=== PATIENT | female | born 1960 | race Caucasian/White ===

== ENCOUNTER → 2019-04-14 | Outpatient (CLI) | payer OTHER ==
[~2019-04-14] MED LIST: ? HTN MED; ALBU90OI; ASCO250CH; ATOR10 PO; CLARITIN10 MG PO; COLCHICINE0.6 MG PO; COLE625; CYAN500; Diclofenac Pota50 MG PO; HYDACE10B PO; HYDCHL25 PO; HYDR1TAB94 PO; INSULANPEN SQ; INVOKANA300 MG PO; LINZESS145 MCG PO; LISI5 PO; METF500 PO; NAPR500 PO; OMEP40CA12 PO; PRECOSE; Phentermine HCl30 MG; QVAR7.3 G1 IH; STOMUL; [UNRECOGNIZED DRUG - REMARK]; [UNRECOGNIZED DRUG - REMARK]
[2019-04-16 14:07] LABS: HPV 16 Negative (Negative); HPV 18 Negative (Negative); HPV OTHER HR TYPES Positive (Negative)
== END | disposition home or self-care (01) ==
LOC: LAB 11:45 → LAB SHORT 11:45
PROVIDERS: Nurse Practitioner Women's Health
DX: Z12.4 Encounter for screening for malignant neoplasm of cervix (principal); Z91.89 Other specified personal risk factors, not elsewhere classified
CPT/HCPCS: 87624; 87625; G0123

== ENCOUNTER → 2020-09-10 | Outpatient (CLI) | payer OTHER | END | disposition home or self-care (01) | LOC: LAB SHORT 08:30 | DX: R82.998 Other abnormal findings in urine (principal) | CPT/HCPCS: 87086 ==

== ENCOUNTER → 2020-09-13 | Outpatient (CLI) | payer OTHER ==
[2020-09-13 12:27] LABS: Protein, Urine Quantitative 14.9 mg/dL (0.0-11.9)
== END | disposition home or self-care (01) ==
LOC: LAB SHORT 08:00 → LAB 08:00 → LAB FUT 09-10 08:30
PROVIDERS: Family Medicine
DX: E11.65 Type 2 diabetes mellitus with hyperglycemia (principal)
CPT/HCPCS: 81050; 84156

== ENCOUNTER 2023-11-15 21:31 | Emergency (ER) | payer OTHER ==
[~2023-11-15] VITALS: Ht 165.1 cm; Wt 93.0 kg
[~2023-11-15 21:31] MED LIST changes: +Zofran4 MG PO
[2023-11-15 22:31] LABS: BASOPHILS ABSOLUTE AUTO 0.04 K/mm3 (0.00-0.23); BASOPHILS PERCENT AUTO 0 % (0-2); EOSINOPHILS ABSOLUTE AUTO 0.15 K/mm3 (0.00-0.68); EOSINOPHILS PERCENT AUTO 1 % (0-6); Hematocrit 41.6 % (33.0-51.0); Hemoglobin 12.9 g/dL (11.5-16.0); IMMATURE GRAN ABSOLUTE AUTO 0.03 K/mm3 (0.00-0.10); IMMATURE GRAN PERCENT AUTO 0 % (0-1); LYMPHOCYTES ABSOLUTE AUTO 3.85 K/mm3 (0.84-5.20); LYMPHOCYTES PERCENT AUTO 31 % (21-46); MONOCYTES ABSOLUTE AUTO 0.87 K/mm3 (0.16-1.47); MONOCYTES PERCENT AUTO 7 % (4-13); Mean Corpuscular HGB 25.1 pg (26.0-34.0); Mean Corpuscular Volume 81 fL (80-100); Mean Platelet Volume 10.5 fL (9.1-12.4); NEUTROPHILS ABSOLUTE AUTO 7.57 K/mm3 (1.96-9.15); NEUTROPHILS PERCENT AUTO 61 % (41-73); Platelet Count 366 K/mm3 (150-400); RDW Coefficient Variation 14.7 % (11.7-14.2); RDW Standard Deviation 43.8 fL (35.1-46.3); Red Blood Cell Count 5.14 M/mm3 (3.80-5.20); White Blood Cell Count 12.51 K/mm3 (4.00-11.30)
[2023-11-15] MEDS ORDERED: Adenosine 3 MG/ML 2 ML Vial IV ONE (22:40)
[2023-11-15] MEDS ORDERED: Adenosine 3 MG/ML 4ML Vial IV ONE ×2 (22:40)
[2023-11-15] MEDS ORDERED: Adenosine 3 MG/ML 2 ML Vial ONE (22:42)
[2023-11-15 22:50] LABS: Influenza A, PCR NEGATIVE (NEGATIVE); Influenza B, PCR NEGATIVE (NEGATIVE); Resp Syncytial Virus, PCR NEGATIVE (NEGATIVE); SARS-Cov-2 (COVID-19) PCR, MMC NEGATIVE (NEGATIVE)
[2023-11-15 22:52] LABS: Albumin, Blood 3.5 g/dL (3.4-5.0); Albumin/Globulin Ratio 0.8 (0.8-1.8); Bilirubin, Total 0.4 mg/dL (0.1-1.0); Bun/Creatinine Ratio 32.7 (12.0-20.0); Calcium, Blood 9.7 mg/dL (8.5-10.1); Creatinine, Blood 1.47 mg/dL (0.40-1.00); Globulin, Blood 4.4 g/dL (2.2-4.0); Magnesium, Blood 1.2 mg/dL (1.6-2.4); Potassium, Blood 4.3 mmol/L (3.5-5.5); Total Protein, Blood 7.9 g/dL (6.4-8.2)
[2023-11-15] MEDS ORDERED: Magnesium Sulf 2 GM/Water 50ML 50 ML IV ONE (23:10)
[2023-11-15] MEDS ORDERED: NS 1,000 ML IV SCH (23:10)
[2023-11-15 23:14] LABS: International Normalized Ratio 0.92; Prothrombin Time Results 9.9 Sec (9.7-11.5)
[2023-11-15] MEDS ORDERED: MOUNJARO12.5 MG/0. SQ (23:30)
[2023-11-15] MEDS ORDERED: SYNJARDY XR 121 EAC1 PO (23:30)
[2023-11-15] MEDS ORDERED: DEXCOM G7 SENS1 EACH MC (23:30)
[2023-11-16 00:45] VITALS: BP 139/71
== END 2023-11-16 00:51 | disposition home or self-care (01) ==
LOC: ER 21:31
PROVIDERS: Emergency Medicine; Physician Assistant
DX: I47.10 Supraventricular tachycardia, unspecified (principal); E83.42 Hypomagnesemia; N17.9 Acute kidney failure, unspecified; E86.0 Dehydration; E11.9 Type 2 diabetes mellitus without complications; I10 Essential (primary) hypertension; E66.01 Morbid (severe) obesity due to excess calories; J45.909 Unspecified asthma, uncomplicated; Z79.84 Long term (current) use of oral hypoglycemic drugs; Z79.4 Long term (current) use of insulin; Z79.899 Other long term (current) drug therapy; Z88.0 Allergy status to penicillin; Z88.2 Allergy status to sulfonamides; Z91.018 Allergy to other foods; Z88.8 Allergy status to other drugs, medicaments and biological substances
CPT/HCPCS: 0241U; 71045; 80053; 83735; 83880; 84484; 85025; 85610; 93005; 93010; 96365; 96375; 99285-25; J0153; J3475; J7030

== ENCOUNTER 2024-10-26 19:10 | Observation (INO) | payer OTHER ==
[~2024-10-26] VITALS: Ht 165.1 cm; Wt 75.4 kg
[~2024-10-26 19:10] MED LIST changes: -ALBU90OI; +ALBU90OI INH; -ASCO250CH; +ASCO500 PO; +DEXCOM G7 SENS1 EACH MC; +MOUNJARO12.5 MG/0. SQ; +SYNJARDY XR 121 EAC1 PO
[2024-10-26 20:05] LABS: Hematocrit 40.6 % (33.0-51.0); Hemoglobin 12.7 g/dL (11.5-16.0); Mean Corpuscular HGB 26.5 pg (26.0-34.0); Mean Corpuscular HGB Conc 31.3 g/dL (31.5-36.5); Mean Corpuscular Volume 85 fL (80-100); Mean Platelet Volume 10.2 fL (9.1-12.4); Platelet Count 365 K/mm3 (150-400); RDW Coefficient Variation 13.8 % (11.7-14.2); Red Blood Cell Count 4.79 M/mm3 (3.80-5.20); White Blood Cell Count 15.42 K/mm3 (4.00-11.30)
[2024-10-26] MEDS ORDERED: NS 1,000 ML IV SCH (20:10)
[2024-10-26] MEDS ORDERED: Metoclopramide HCl 5MG / ML 2ML Vial IV ONE (20:20)
[2024-10-26 20:26] LABS: Alanine Aminotransfer (ALT/SGP 15 U/L (12-78); Albumin, Blood 3.7 g/dL (3.4-5.0); Alk Phos 73 U/L (50-136); Anion Gap 13 mmol/L (3-11); Aspartate Aminotrans (AST/SGOT 13 U/L (12-37); Bilirubin, Total 0.2 mg/dL (0.1-1.0); Blood Urea Nitrogen 39 mg/dL (8-24); Bun/Creatinine Ratio 35.8 (12.0-20.0); CO2, Blood 21 mmol/L (21-32); Chloride, Blood 108 mmol/L (98-108); Creatinine, Blood 1.09 mg/dL (0.40-1.00); Ethanol (Alcohol), Blood, Med <3 mg/dL; Globulin, Blood 3.8 g/dL (2.2-4.0); Glomerular Filtration Rate 56 (60-); Glucose, Blood 174 mg/dL (70-99); Potassium, Blood 3.7 mmol/L (3.5-5.5); Sodium, Blood 138 mmol/L (136-145); Total Protein, Blood 7.5 g/dL (6.4-8.2)
[2024-10-26 20:34] LABS: BASOPHILS PERCENT MAN 0 % (0-2); EOSINOPHILS ABSOLUTE MAN 0.15 K/mm3 (0.00-0.68); EOSINOPHILS PERCENT MAN 1 % (0-6); LYMPHOCYTES ABSOLUTE MAN 8.01 K/mm3 (0.84-5.20); LYMPHOCYTES PERCENT MAN 52 % (21-46); MONOCYTES ABSOLUTE MAN 1.23 K/mm3 (0.16-1.47); MONOCYTES PERCENT MAN 8 % (4-13); NEUTROPHILS ABSOLUTE MAN 6.01 K/mm3 (1.96-9.15); SEG NEUTROPHILS PERCENT MAN 39 % (41-73); TOTAL CELLS COUNTED 100
[2024-10-26] MEDS ORDERED: Acetaminophen 325 MG TABLET PO PRN (23:45)
[2024-10-26] MEDS ORDERED: Ondansetron HCl 2 MG / ML 2ML Vial IV PRN (23:45)
[2024-10-27 00:07] LABS: Source, Urine Clean Catch
[2024-10-27 00:13] LABS: Appearance, Urine Hazy (Clear); Bilirubin, Urine Neg (Neg); Blood, Urine 1+ (Neg); Color, Urine Pale Yellow (P-Yellow); Glucose Qualitative, Urine 4+ (Neg); Ketones, Urine Neg (Neg); Leukocyte Esterase, Urine 3+ (Neg); Nitrite, Urine Neg (Neg); Protein, Urine 1+ (Neg); Specific Gravity, Urine 1.015 (1.003-1.022); Urobilinogen, Urine NORM (Normal)
[2024-10-27 00:16] LABS: Bacteria Many /hpf; Red Blood Cells, Urine 0-2 /hpf (0-2); Squamous Epithelial Cells Few /hpf (Few); White Blood Cells, Urine TNTC /hpf (0-5)
[2024-10-27 00:27] LABS: U Amphetamine Screen Not Detected; U Barbituate Screen Not Detected; U Benzodiazapine Screen Not Detected; U Buprenorphine Screen Not Detected; U Cannabinoids Screen DETECTED; U Cocaine Screen Not Detected; U Methadone Screen Not Detected; U Methamphetamine Screen Not Detected; U Opiates Screen Not Detected; U Oxycodone Screen Not Detected; U Phencyclidine Screen Not Detected
[2024-10-27] MEDS ORDERED: CefTRIAXone Sodium 1,000 MG in NS 100 ML IV SCH (04:00)
[2024-10-27 06:07] LABS: BASOPHILS ABSOLUTE AUTO 0.04 K/mm3 (0.00-0.23); BASOPHILS PERCENT AUTO 0 % (0-2); EOSINOPHILS ABSOLUTE AUTO 0.02 K/mm3 (0.00-0.68); EOSINOPHILS PERCENT AUTO 0 % (0-6); Hematocrit 37.8 % (33.0-51.0); Hemoglobin 11.6 g/dL (11.5-16.0); IMMATURE GRAN ABSOLUTE AUTO 0.03 K/mm3 (0.00-0.10); IMMATURE GRAN PERCENT AUTO 0 % (0-1); LYMPHOCYTES PERCENT AUTO 30 % (21-46); MONOCYTES ABSOLUTE AUTO 0.63 K/mm3 (0.16-1.47); MONOCYTES PERCENT AUTO 7 % (4-13); Mean Corpuscular HGB 26.5 pg (26.0-34.0); Mean Corpuscular HGB Conc 30.7 g/dL (31.5-36.5); Mean Corpuscular Volume 86 fL (80-100); Mean Platelet Volume 10.2 fL (9.1-12.4); NEUTROPHILS ABSOLUTE AUTO 5.91 K/mm3 (1.96-9.15); NEUTROPHILS PERCENT AUTO 62 % (41-73); Platelet Count 294 K/mm3 (150-400); RDW Standard Deviation 44.5 fL (35.1-46.3); Red Blood Cell Count 4.38 M/mm3 (3.80-5.20); White Blood Cell Count 9.53 K/mm3 (4.00-11.30)
[2024-10-27 06:45] LABS: CHOL/HDL RATIO 2.4; Cholesterol 137 mg/dL (50-200); HDL Cholesterol 57 mg/dL (>39); LDL/HDL RATIO 0.8; Low Density Lipoprotein Chol 48 mg/dL (0-110); Triglycerides 159 mg/dL (30-160); Very Low Density Lipoprot Chol 31 mg/dL (6-32)
[2024-10-27 06:57] LABS: Albumin, Blood 3.2 g/dL (3.4-5.0); Albumin/Globulin Ratio 0.9 (0.8-1.8); Bilirubin, Total 0.2 mg/dL (0.1-1.0); Calcium, Blood 9.4 mg/dL (8.5-10.1); Creatinine, Blood 1.09 mg/dL (0.40-1.00); Globulin, Blood 3.5 g/dL (2.2-4.0); Magnesium, Blood 1.9 mg/dL (1.6-2.4); Potassium, Blood 4.3 mmol/L (3.5-5.5); Thyroid Stimulating Hormone 1.95 uIU/mL (0.360-4.800); Total Protein, Blood 6.7 g/dL (6.4-8.2)
[2024-10-27] MEDS ORDERED: Insulin Regular 100 UNIT/ML 10ML Vial SC SCH (07:30)
[2024-10-27] MEDS ORDERED: Insulin Glargine-Yfgn 100 Unit/mL 3 ML SYR SC SCH (09:00)
[2024-10-27] MEDS ORDERED: Atorvastatin 10 MG Tab PO SCH (09:00)
[2024-10-27] MEDS ORDERED: Loratadine 10 MG Tab PO SCH (09:00)
--- NOTE | 2024-10-27 09:38 | NUR ---
AM MEDS ADMINISTERED. PT AXO4. IN BED WITH CALL LIGHT AT BEDSIDE
[2024-10-27 16:08] VITALS: BP 140/64
--- NOTE | 2024-10-27 16:15 | NUR ---
PT TRANSFERRED TO ROOM 313. GAVE REPORT TO RECEIVING NURSE. PT REPORTS FEELING WELL. NO FURTHER QUESTIONS FROM RECEIVING NURSE.
[2024-10-27] MEDS ORDERED: ALEVAZOL56.7 G1 TOP (16:16)
[2024-10-27] MEDS ORDERED: PRED20 PO (16:17)
[2024-10-27] MEDS ORDERED: PANT40 PO (16:22)
[2024-10-27] MEDS ORDERED: FEBUXOSTAT40 MG PO (16:23)
[2024-10-27] MEDS ORDERED: Diflucan150 MG PO (16:29)
[2024-10-27] MEDS ORDERED: BREYNA 160-4.10.3 GM INH (16:30)
--- NOTE | 2024-10-27 17:03 | NUR ---
ADMISSION NOTE PATIENT ADMITTED FROM THE EMERGENCY ROOM FOR 3-4 SYNCOPAL EVENTS, CVA RULE OUT. PATIENT AMBULATORY, STAND BY ASSIST DUE TO SYNCOPE. FAMIL;Y AT BEDSIDE DURING ADMISSION, TELEMETRY ORDERED. PATIENT A/OX4, ABLE TO MAKE NEEDS KNOWN. NO PHYSICAL DEFECITS NOTED. VSS. WILL CONTINUE TO MONITOR.
--- NOTE | 2024-10-27 19:28 | NUR ---
TO MRI VIA W/C.
[2024-10-27 21:00] VITALS: BP 131/61
[2024-10-28 00:21] VITALS: BP 146/72
[2024-10-28 05:05] VITALS: BP 127/67
--- NOTE | 2024-10-28 05:19 | NUR ---
SHIFT SUMMARY; PATIENT SLEPT IN LONG INTERVALS. HAD MRI DONE AT 1930. NO C/O DIZZINESS WHEN UP TO BR. TELE SR @ 72.
[2024-10-28 07:45] VITALS: BP 136/72
[2024-10-28 11:38] VITALS: BP 138/80
--- NOTE | 2024-10-28 12:15 | NUR ---
DISCHARGE PT HAD ZIO PATCH PLACED BY THE [facility]. IV REMOVED & INTACT. PT & FAMILY EDUCATED ON NEW MEDS AND FOLLOW UP APPOINTMENTS/INSTRUCTIONS NEEDED. NO FURTHER QUESTIONS REQUIRED AT TIMES OF DC. PT WHEELED OPUT BY AIDE & DRIVEN HOME BY FAMILY.
[2024-10-28] MEDS ORDERED: CIPR500 PO (12:55)
[2024-10-28] MEDS ORDERED: Lactobacil 2-S.Thermo-Bifido 1 1 Cap PO SCH (21:00)
== END 2024-10-28 13:35 | disposition home or self-care (01) ==
LOC: ER 19:10 → ERHOLD 19:11 → MEDS 10-27 16:20
PROVIDERS: Emergency Medicine; ADMIT Student in an Organized Health Care Education/Training Program
DX: R55 Syncope and collapse (principal); R29.810 Facial weakness; E11.9 Type 2 diabetes mellitus without complications; I47.19 Other supraventricular tachycardia; I10 Essential (primary) hypertension; E78.5 Hyperlipidemia, unspecified; M10.9 Gout, unspecified; J45.909 Unspecified asthma, uncomplicated; G47.33 Obstructive sleep apnea (adult) (pediatric); K21.9 Gastro-esophageal reflux disease without esophagitis; Z79.4 Long term (current) use of insulin; Z79.84 Long term (current) use of oral hypoglycemic drugs; Z79.899 Other long term (current) drug therapy; Z88.0 Allergy status to penicillin; Z88.2 Allergy status to sulfonamides; Z88.8 Allergy status to other drugs, medicaments and biological substances; Z91.018 Allergy to other foods
CPT/HCPCS: 36415; 70450; 70551; 80053; 80061; 80320; 81001; 82947; 83036; 83690; 83735; 84443; 84484; 85025; 87086; 93005; 93010; 93246; 93306; 93880; 94660; 94762; 96361; 96365; 96375; 96376; 99285-25; A9270; G0378; J0696; J1815; J2765; J7030

== ENCOUNTER → 2024-12-06 | Outpatient (CLI) | payer OTHER ==
[~2024-12-06] MED LIST changes: +ALEVAZOL56.7 G1 TOP; +BREYNA 160-4.10.3 GM INH; +CIPR500 PO; +Diflucan150 MG PO; +FEBUXOSTAT40 MG PO; +PANT40 PO; +PRED20 PO
== END ==
LOC: LAB 18:23 → LAB SHORT 18:23
DX: N39.0 Urinary tract infection, site not specified (principal); R53.81 Other malaise
CPT/HCPCS: 87086